=== PATIENT | male | born 1935 | race Caucasian/White ===

== ENCOUNTER → 2017-02-23 | Outpatient (CLI) | payer MEDICARE, BC | END | disposition home or self-care (01) | LOC: CFH 12:25 | PROVIDERS: ATTEND Specialist | DX: C83.33 Diffuse large B-cell lymphoma, intra-abdominal lymph nodes (principal); J90 Pleural effusion, not elsewhere classified; J92.9 Pleural plaque without asbestos; J98.11 Atelectasis; M45.9 Ankylosing spondylitis of unspecified sites in spine | CPT/HCPCS: 71250; 74176; 82565 ==

== ENCOUNTER 2017-03-14 08:49 | Day surgery (SDC) | payer MEDICARE, BC ==
[~2017-03-14] VITALS: Ht 172.7 cm; Wt 85.0 kg
[2017-03-14] MEDS ORDERED: SODIUM CHLORIDE 0.9% 1,000 ML IV SCH (09:33)
[2017-03-14 09:55] VITALS: BP 177/48
[2017-03-14] MEDS ORDERED: LIDOCAINE 2%, 20ML ONE (10:25)
[2017-03-14] MEDS ORDERED: PLEASE ENTER ALLERGIES MC SCH ×2 (10:30)
[2017-03-14] MEDS ORDERED: FENTANYL PF 100 MCG/2ML ONE (10:31)
[2017-03-14] MEDS ORDERED: MIDAZOLAM 1 MG/ML, 5ML ONE ×2 (10:31)
[2017-03-14] MEDS ORDERED: ATROPINE SYRINGE 0.1 MG/ML, 10ML ONE (11:05)
== END 2017-03-14 12:35 ==
LOC: RAD 08:49
PROVIDERS: ATTEND Specialist
DX: C83.31 Diffuse large B-cell lymphoma, lymph nodes of head, face, and neck (principal); I10 Essential (primary) hypertension; N40.0 Benign prostatic hyperplasia without lower urinary tract symptoms; E11.9 Type 2 diabetes mellitus without complications; Z98.890 Other specified postprocedural states; Z90.49 Acquired absence of other specified parts of digestive tract; Z96.659 Presence of unspecified artificial knee joint; Z87.891 Personal history of nicotine dependence
CPT/HCPCS: 49180; 77012; 88305; 99156; 99157; J2250; J3010; J3490; J7030; J0461

== ENCOUNTER → 2017-03-18 | Outpatient (CLI) | payer MEDICARE, BC | END | disposition home or self-care (01) | LOC: PETCFH 13:06 | PROVIDERS: ATTEND Specialist | DX: C83.33 Diffuse large B-cell lymphoma, intra-abdominal lymph nodes (principal); J90 Pleural effusion, not elsewhere classified; N13.30 Unspecified hydronephrosis | CPT/HCPCS: 78815; A9552 ==